=== PATIENT | female | born 1970 | race African-American/Black ===

== ENCOUNTER 2017-10-26 16:43 | Emergency (ER) | payer OTHER ==
[~2017-10-26] VITALS: Ht 162.6 cm; Wt 68.0 kg
[2017-10-26] MEDS ORDERED: ROBAXIN-750750 MG PO (18:45)
[2017-10-26] MEDS ORDERED: IBUPROFEN600 MG ORAL (18:45)
[2017-10-26 18:55] VITALS: BP 133/99
--- NOTE | 2017-10-28 08:38 | Emergency Room Report ---
History of Present Illness General Chief Complaint: Headache Source: Patient Present Illness HPI Patient present with complaints of headache Please note the patient was initially called to the waiting room by myself there was no response After several attempts patient was been removed from [facility] however did return for evaluation Patient was over the past one month she has had recurring headaches She feels that the onset was initially when she had some emotional distress being suspended at work Off-and-on since then now she has had pain that starts in the mid nasal bridge goes up toward and posteriorly to the lower parietal region in the occipital region Patient has increased tension and discomfort in both trapezius area as well Denies any vomiting or diarrhea denies any focal weakness Allergies: Coded Allergies: No Known Allergies (Verified Allergy, Unknown, 04/26/11) Patient History Past Medical History: see triage record Pertinent Family History: none Reviewed Nursing Documentation: PMH: Agreed, PSxH: Agreed Nursing Documentation-PMH Past Medical History: No Stated History Review of Systems All Other Systems: negative except mentioned in HPI Physical Exam Vital Signs Date Time Temp Pulse Resp B/P (MAP) Pulse Ox O2 Delivery O2 Flow Rate FiO2 10/26/17 16:50 98.2 82 20 143/103 99 Room Air Sp02 EP Interpretation: reviewed, normal General Appearance: well appearing, no apparent distress Head: normocephalic, atraumatic Eyes: bilateral eye PERRL, bilateral eye EOMI ENT: hearing grossly normal, normal pharynx, TMs + canals normal, uvula midline Neck: full range of motion, supple, no meningismus, no bony tend Respiratory: lungs clear, normal breath sounds, no rhonchi, no respiratory distress, no retraction, no accessory muscle use Cardiovascular #1: normal peripheral pulses, regular rate, rhythm, no edema, no gallop, no JVD, no murmur Gastrointestinal: normal bowel sounds, non tender, soft, no mass, no organomegaly, non-distended, no guarding, no hernia, no pulsatile mass, no rebound Genitourinary: no CVA tenderness Musculoskeletal: normal inspection Neurologic: oriented x3, responsive, 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 III-XII nml as tested, motor strength/ tone normal, sensory intact Psychiatric: mood/affect normal Skin: normal color, no rash, warm/dry, palpation normal Lymphatic: normal inspection, no adenopathy Medical Decision Making Diagnostic Impression: Primary Impression: Headache ER Course The patient's duration of headaches Given the lack of any previous workup I felt the patient would benefit from initial CAT scan imaging Patient however has refused imaging at this time Patient will be treated symptomatically No signs of any neurological deficit And will have close followup Last Vital Signs Date Time Temp Pulse Resp B/P (MAP) Pulse Ox O2 Delivery O2 Flow Rate FiO2 10/26/17 18:55 98.2 77 18 133/99 100 Room Air Status: unchanged Disposition: HOME, SELF-CARE Condition: Stable Scripts Methocarbamol* (ROBAXIN-750*) 750 Mg Tablet 750 MG PO TID, #21 TAB 0 Refills Prov: DARREN GUILLERMO D.O. 10/26/17 Ibuprofen* (MOTRIN*) 600 Mg Tablet 600 MG ORAL Q8H Y for For Pain, #20 TAB 0 Refills Prov: DARREN GUILLERMO D.O. 10/26/17 Referrals: NOT CHOSEN [facility]/,REFERRING (PCP) Patient Instructions: General Headache Without Cause Additional Instructions: Patient is provided with the discharge instructions notified to follow up with primary doctor in the next 2-3 days otherwise return to the er with any worsening symptoms. Please note that this report is being documented using [employer] technology. This can lead to erroneous entry secondary to incorrect interpretation by the dictating instrument. DARREN GUILLERMO D.O. Oct 28, 2017 08:38
== END 2017-10-26 18:55 | disposition home or self-care (01) ==
LOC: EMR 18:25
DX: R51 Headache (principal)
CPT/HCPCS: 99284